=== PATIENT | female | born 1995 | race Caucasian/White ===

== ENCOUNTER 2023-03-15 18:43 | Emergency (ER) | payer MEDICAID, SELFPAY ==
[2023-03-15 18:51] VITALS: BP 115/68; PULSE 95; RESP 20; TEMP 37.2; O2SAT 100; BMI 34.2
--- NOTE | 2023-03-15 21:43 | ED_ITS ---
HPI - General Chief complaint: Abdominal Pain Stated complaint: 17.5 WEEKS , PRESSURE/CERVICAL PAIN Time Seen by Provider: 03/15/23 21:43 Source: patient Mode of arrival: walk-in Limitations: no limitations History of Present Illness HPI Narrative: [id number]. miscarriage 11/2022. 17 weeks . bleeding on and off for a couple of weeks. Seen by her milk of lime slaker last week and had ultrasound performed. Complains of pelvic pressure and came in to be checked . No urinary symptoms . No fever or chills. Related Data Home Medications Medication Instructions Recorded Confirmed No Known Home Medications 03/15/23 03/15/23 Allergies Allergy/AdvReac Type Severity Reaction Status Date / Time No Known Drug Allergies Allergy Verified 03/15/23 18:50 Review of Systems ROS Status of ROS 10 or more systems reviewed and unremarkable except as noted in history and below [facility] Social History Smoking status: Heavy tobacco smoker Exam Constitutional Vital Signs - 24 hr 03/15/23 18:51 Temperature 99 F Pulse Rate [Monitor] 95 H Respiratory Rate 20 Blood Pressure [Left Arm] 115/68 Pulse Oximetry 100 HENMT Common normals: normocephalic and head/scalp atraumatic Face and sinus: normal facial exam Eye Common normals: PERRL, EOMs intact bilaterally and conjunctivae normal Neck & C-Spine Common normals: full ROM and no lymphadenopathy Chest Common normals: inspection of chest normal Respiratory Common normals: normal respiratory effort, no use of accessory muscles and clear to auscultation bilaterally Cardio Common normals: regular rhythm, S1 normal heart sound and S2 normal heart sound GI Common normals: Normal to inspection, nondistended, normoactive bowel sounds present Other: mild suprapubic tenderness. Gravid Other: normal external exam. Speculum exam with evidence of protrusion of the aminotic sac through the os. No evidence of blood Back & Pelvis Common normals: no CVA tenderness and thoracic and lumbar spine normal to inspection Extremity Common normals: normal to inspection, no joint enlargement and no clubbing, cyanosis or edema Neuro Common normals: oriented x3, CN's II-XII intact bilaterally, moves all extremities and gait normal Psych Common normals: mental status grossly normal Course Vital Signs Vital signs: Vital Signs Temperature 99 F 03/15/23 18:51 Pulse Rate 95 H 03/15/23 18:51 Respiratory Rate 20 03/15/23 18:51 Blood Pressure 115/68 03/15/23 18:51 Pulse Oximetry 100 03/15/23 18:51 Temperature 99 F 03/15/23 18:51 Pulse Rate 95 H 03/15/23 18:51 Respiratory Rate 20 03/15/23 18:51 Blood Pressure 115/68 03/15/23 18:51 Pulse Oximetry 100 03/15/23 18:51 MDM - OB/Uterine Contractions MDM Narrative Medical decision making narrative: [id number]. miscarriage 11/2022. Now 17 weeks . Presents complaining of increased pelvic pressure. speculum exam with evidence of protrusion of the amniotic sac through the cervix into the vaginal vault. Discussed with Dr Gates patient seen by Dr Gates. She has incompetent cervix and will have a miscarriage. He informed her of the above and states no further treatment is necessary at this time. Patient discharged home to follow up with her milk of lime slaker Lab Data Labs: Lab Results 03/15/23 03/15/23 Range/Units 21:45 22:00 WBC 12.9 H (4.0-11.0) 10^3/uL RBC 3.95 L (4.20-5.40) 10^6/uL Hgb 11.7 L (12.0-16.0) g/dL Hct 34.9 L (36.0-48.0) % MCV 88.4 (81.0-99.0) fL MCH 29.6 (26.7-34.0) pg MCHC 33.5 (29.9-35.2) g/dL RDW 13.2 (11.0-15.0) % Plt Count 252 (150-450) 10^3/uL MPV 9.8 (9.5-13.5) fL Neut % (Auto) 69.7 (43.0-75.0) % Lymph % (Auto) 22.1 (20.5-60.0) % [place] % (Auto) 5.1 (1.7-12.0) % Eos % (Auto) 1.4 (0.9-7.0) % Baso % (Auto) 0.5 (0.2-2.0) % Neut # (Auto) 9.0 H (1.4-6.5) 10^3/uL Lymph # (Auto) 2.9 (1.2-3.8) 10^3/uL [place] # (Auto) 0.7 (0.3-0.8) 10^3/uL Eos # (Auto) 0.2 (0.0-0.7) 10^3/uL Baso # (Auto) 0.1 (0.0-0.1) 10^3/uL Sodium 136 (136-145) mmol/L Potassium 3.5 (3.5-5.1) mmol/L Chloride 103 (98-107) mmol/L Carbon Dioxide 21.9 (21.0-32.0) mmol/L Anion Gap 14.6 BUN 8.0 (7.0-18.0) mg/dL Creatinine 0.58 (0.55-1.02) mg/dL Est GFR ( Amer) >60 (>=60) Est GFR (Non-Af Amer) >60 (>=60) BUN/Creatinine Ratio 13.8 Glucose 79 (74-106) mg/dL Calcium 9.2 (8.5-10.1) mg/dL Total Bilirubin 0.2 (0.2-1.0) mg/dL AST 16 (15-37) U/L ALT 32 (14-59) U/L Total Protein 7.2 (6.4-8.2) g/dL Albumin 3.4 (3.4-5.0) g/dL Globulin 3.8 g/dL Albumin/Globulin Ratio 0.9 HCG, Quant 6839 mIU/mL Urine Color Lt. yellow (YELLOW) Urine Clarity Clear (CLEAR) Urine pH 5.5 (5.0-9.0) Ur Specific [place] 1.025 (1.005-1.025) Urine Protein Negative (NEG/TRACE) mg/dL Urine Glucose (UA) Negative (NEGATIVE) mg/dL Urine Ketones Negative (NEGATIVE) mg/dL Urine Occult Blood Trace-i (NEGATIVE) Urine Nitrite Negative (NEGATIVE) Urine Bilirubin Negative (NEGATIVE) Urine Urobilinogen 0.2 (0.2-1.0) EU/dL Ur Leukocyte Esterase Negative (NEGATIVE) Urine RBC 0-2 (0-2) #/HPF Urine WBC 2-5 A (NONE SEEN) #/HPF Ur Squamous Epith Cells Few A (NONE/RARE) #/LPF Urine Yeast Seen A (NONE SEEN) Ur Oval Fat Bodies Seen Discharge Plan Discharge Chief Complaint: Abdominal Pain Clinical Impression: History of incompetent cervix, currently in second trimester Patient Disposition: Home, Self-Care Prescriptions / Home Meds: No Action No Known Home Medications Instructions: Incompetent Cervix (ED) Stand Alone Forms: Portal Instructions Referrals: GIANLUCA BRISCOE [Primary Care Provider] - 1 week Follow Up Appointments: follow up with your milk of lime slaker
[2023-03-15 22:08] LABS: Basophils Absolute Auto 0.1 10^3/uL (0.0-0.1); Basophils Percent Auto 0.5 % (0.2-2.0); Eosinophils Absolute Auto 0.2 10^3/uL (0.0-0.7); Eosinophils Percent Auto 1.4 % (0.9-7.0); Hematocrit 34.9 % (36.0-48.0); Hemoglobin 11.7 g/dL (12.0-16.0); Immature Granulocytes Abs Auto 0.15 10^3/uL (0.00-0.03); Immature Granulocytes Pct Auto 1.2 % (0.0-0.5); Lymphocytes Absolute Auto 2.9 10^3/uL (1.2-3.8); Lymphocytes Percent Auto 22.1 % (20.5-60.0); Mean Corpuscular HGB Conc 33.5 g/dL (29.9-35.2); Mean Corpuscular Hemoglobin 29.6 pg (26.7-34.0); Mean Corpuscular Volume 88.4 fL (81.0-99.0); Mean Platelet Volume 9.8 fL (9.5-13.5); Monocytes Absolute Auto 0.7 10^3/uL (0.3-0.8); Monocytes Percent Auto 5.1 % (1.7-12.0); Neutrophils Percent Auto 69.7 % (43.0-75.0); Platelet Count 252 10^3/uL (150-450); Red Blood Count 3.95 10^6/uL (4.20-5.40); Red Cell Distribution Width 13.2 % (11.0-15.0); White Blood Count 12.9 10^3/uL (4.0-11.0)
[2023-03-15 22:09] LABS: HCG Qualitative Urine* POSITIVE (NEGATIVE)
[2023-03-15 22:10] LABS: Bilirubin Urine NEGATIVE (NEGATIVE); Blood Urine TRACE-I (NEGATIVE); Clarity Urine CLEAR (CLEAR); Color Urine LT. YELLOW (YELLOW); Glucose Urine UA NEGATIVE (NEGATIVE); Ketones Urine NEGATIVE (NEGATIVE); Leukocyte Esterase Urine NEGATIVE (NEGATIVE); Nitrite Urine NEGATIVE (NEGATIVE); Protein Urine NEGATIVE (NEG/TRACE); Specific Gravity Urine 1.025 (1.005-1.025); Urobilinogen Urine 0.2 EU/dL (0.2-1.0); pH Urine 5.5 (5.0-9.0)
[2023-03-15 22:18] LABS: Bacteria Urine NONE SEEN #/HPF (NONE SEEN); Cast Seen? NONE SEEN #/LPF (NONE SEEN); Crystals Seen? None Seen #/HPF (None Seen); Mucus Urine NONE SEEN (NONE SEEN); Oval Fat Bodies Urine SEEN; RBC Urine 0-2 #/HPF (0-2); Squamous Epithelial Cell Urine FEW #/LPF (NONE/RARE)
[2023-03-15 22:25] LABS: Alanine Aminotransferase 32 U/L (14-59); Albumin Globulin Ratio 0.9; Albumin Level 3.4 g/dL (3.4-5.0); Alkaline Phosphatase 59 U/L (46-116); Anion Gap 14.6; Aspartate Amino Transferase 16 U/L (15-37); BUN Creatinine Ratio 13.8; Bilirubin Total 0.2 mg/dL (0.2-1.0); Calcium 9.2 mg/dL (8.5-10.1); Carbon Dioxide 21.9 mmol/L (21.0-32.0); Chloride 103 mmol/L (98-107); Estimated GFR (African America >60 (>=60); Estimated GFR (Non-African Ame >60 (>=60); Globulin 3.8 g/dL; Glucose 79 mg/dL (74-106); Potassium 3.5 mmol/L (3.5-5.1); Sodium 136 mmol/L (136-145); Total Protein 7.2 g/dL (6.4-8.2)
--- NOTE | 2023-03-15 22:57 | PC.NURSE ---
dr rendon at the bedside for pelvic exam
[2023-03-15 23:22] LABS: HCG Quantitative 6839 mIU/mL
--- NOTE | 2023-03-15 23:30 | PC.NURSE ---
dr ortega at the bedside for pelvic exam.
--- NOTE | 2023-03-15 23:54 | PC.NURSE ---
discussed discharge paperwork with pt and pts significant other. work noted provided. all questions answered. pt ambulated off unit in stable condition.
== END 2023-03-15 23:55 | disposition home or self-care (01) ==
PROVIDERS: Emergency Provider Internal Medicine; PCP Nurse Practitioner
DX: O26.892 Other specified pregnancy related conditions, second trimester (principal); R10.2 Pelvic and perineal pain; Z3A.17 17 weeks gestation of pregnancy
CPT/HCPCS: 36415; 80053; 81001; 84702; 84703; 85025; 99283

== ENCOUNTER 2023-03-18 22:11 | Emergency (ER) | payer MEDICAID, SELFPAY ==
[2023-03-18 22:14] VITALS: BP 134/81; PULSE 115; RESP 18; TEMP 36.8; O2SAT 100; BMI 34.0
--- NOTE | 2023-03-18 22:38 | PC.NURSE ---
patient seen friday and with incompetent cervix. seen by Dr. Gates and told there was nothing he could do. patient went to [facility] and given cercalage. patient having increased discharge and pain. Nurse at bedside for Dr. newell to preform external vaginal exam.
--- NOTE | 2023-03-18 22:39 | ED_ITS ---
HPI - General Adult General Chief complaint: Urogenital-Female Stated complaint: POST OP ISSUES Time Seen by Provider: 03/18/23 22:32 Source: patient Mode of arrival: Wheelchair History of Present Illness HPI narrative: Patient is a 27-year-old female who is presenting to the Emergency Room with chief complaint of pelvic pressure/pain. Patient is approximate 17 weeks . Patient's heart tones were 138. Patient has minimal clear discharge, patient has no bleeding, no significant leaking of any type of fluid or draining fluid. Patient is a . Patient had a miscarriage with her 1st . Patient was here [facility] this past weekend, then she went to [facility] where she had a cervical cerclage done on Friday. Patient is following up with the local postmaster in a few weeks. Patient does have an appo intment with the OB in [place] who did the cerclage this in 2 days. Patient has no fever or chills. No trauma. No other abdominal pain, nausea, vomiting, no urinary frequency, urgency or burning or any other acute complaints. Patient has been on pelvic rest. Patient did not take any Tylenol for pain at home, patient states she was not sure what she takes at home for pain. Related Data Home Medications Medication Instructions Recorded Confirmed No Known Home Medications 03/15/23 03/15/23 Allergies Allergy/AdvReac Type Severity Reaction Status Date / Time No Known Drug Allergies Allergy Verified 03/18/23 22:25 Review of Systems ROS Narrative All systems are negative except as noted/marked. All systems reviewed and otherwise negative. PFSH [facility] Social History Smoking status: Heavy tobacco smoker Exam Narrative Exam Narrative: Nurses note and vital signs reviewed and patient is not hypoxic. General: The patient appears well and in no apparent distress. Patient is resting uncomfortably on cart. Patient is not toxic, lethargic, or listless. at bedside during exam. Skin: Warm, dry, no pallor noted. There is no rash noted. No petechiae, purpura. Head: Normocephalic, atraumatic Eye: Normal conjunctiva, no drainage, EOMI. PERRL Ears, Nose, Mouth, and Throat: oral mucosa is moist. Cardiovascular: Regular Rate and Rhythm, no murmur, gallop, rub Respiratory: Patient is in no distress, no accessory muscle use, lungs are clear to auscultation, no wheezing, rales or rhonchi Back: non-tender, no CVA tenderness bilaterally to percussion. No CT LS midline pain GI: soft, Patient has a gravid uterus, approximately 17 weeks , patient has minimal suprapubic tenderness to palpation, otherwise no flank pain, no peritoneal signs, abdomen is not rigid or tympanic, otherwise no tenderness to palpation, no masses appreciated. No rebound, guarding, or rigidity noted. No flank pain bilateral, No distention : External exam was done with Jalen CANNON. Patient had no active bleeding, no drainage of any type of fluid or water or any vaginal drainage noted. No signs of redness, swelling, trauma, or any other acute findings. Musculoskeletal: Patient has full range of motion of all of the extremities, no motor, sensory, or focal neurological deficits. Neurological: A&O x3, normal speech Psychiatric: Cooperative Constitutional Vital Signs - 24 hr 03/18/23 22:14 Temperature 98.3 F Pulse Rate [Monitor] 115 H Respiratory Rate 18 Blood Pressure [Right Arm] 134/81 H Pulse Oximetry 100 Oxygen Delivery Method Room Air Course Vital Signs Vital signs: Vital Signs Temperature 98.3 F 03/18/23 22:14 Pulse Rate 115 H 03/18/23 22:14 Respiratory Rate 18 03/18/23 22:14 Blood Pressure 134/81 H 03/18/23 22:14 Pulse Oximetry 100 03/18/23 22:14 Oxygen Delivery Method Room Air 03/18/23 22:14 Temperature 98.3 F 03/18/23 22:14 Pulse Rate 115 H 03/18/23 22:14 Respiratory Rate 18 03/18/23 22:14 Blood Pressure 134/81 H 03/18/23 22:14 Pulse Oximetry 100 03/18/23 22:14 Oxygen Delivery Method Room Air 03/18/23 22:14 Medical Decision Making MDM Narrative Medical decision making narrative: I spoke to Dr. Le who is on-call for [facility]. He stated the patient is going to have pressure throughout her . He recommended continuing pelvic rest. He stated to not do a pelvic exam was absolutely necessary secondary to leakage of fluid, bleeding, or any other acute concerns. Patient is to follow-up with her OB appointment on , patient was recommended to return back to the Emergency Room If she is having atypical leading, significant drainage of water, fluid or leakage, or any other acute concerns. Patient was given Tylenol in the Emergency Room. Patient was given a prescription for Zofran to help with nausea vomiting during . Patient has no acute indication for pelvic exam at this time. Patient was educated at bedside along with . Patient will continue pelvic rest. Patient is not working until after she sees her OB this . Discharge Plan Discharge Chief Complaint: Urogenital-Female Clinical Impression: Pelvic pressure in Patient Disposition: Home, Self-Care Prescriptions / Home Meds: No Action No Known Home Medications Instructions: Cervical Cerclage (DC) Additional Instructions: Follow-up with here [facility] as scheduled appointment on . Continue pelvic rest until your OB appointment on . You can use Tylenol every 4 hours as needed for pain. If any significant bleeding, or any significant draining or leakage of fluid/water if your water has broken, return back to the Emergency Room. Otherwise continue to follow up with her OB care in [place]. Stand Alone Forms: Portal Instructions Referrals: GIANLUCA BRISCOE [Primary Care Provider] - 1 week
[2023-03-18] MEDS: ACETAMINOPHEN 500 MG TABLET PO (23:05)
--- NOTE | 2023-03-18 23:24 | PC.NURSE ---
heart tones 138.
== END 2023-03-18 23:28 | disposition home or self-care (01) ==
PROVIDERS: Emergency Provider Emergency Medicine; PCP Nurse Practitioner
DX: O26.892 Other specified pregnancy related conditions, second trimester (principal); R10.2 Pelvic and perineal pain; Z3A.17 17 weeks gestation of pregnancy
CPT/HCPCS: 99282

== ENCOUNTER 2023-03-19 04:03 | Inpatient (IN) | payer MEDICAID, SELFPAY ==
[2023-03-19] VITALS (33 sets, daily range): BP systolic 90–139; BP diastolic 46–85; PULSE 77–108; RESP 14–20; TEMP 36.6–37.8; O2SAT 16–100
--- NOTE | 2023-03-19 04:15 | ED.GENADUL1 ---
HPI - General Adult General Chief complaint: OB/Uterine Contractions Stated complaint: POSSIBLE WATER BREAK, ABDOMINAL PAIN, Time Seen by Provider: 03/19/23 04:15 History of Present Illness HPI narrative: Patient is a 27-year-old female who is presenting to the Emergency Room with chief complaint of pelvic pain, pressure, lower back pain That started within the hour of arrival. Patient stated that she had gushing of fluid that soaked a pad prior to arrival, and when patient was getting up from the wheelchair into the bed in room 8 patient, Patient had a 2nd fluid discharge, greenish coloration, that soaked her pad again in her underwear. Patient is having pelvic cramping and lower back pain as well. Patient has no bleeding. No nausea, vomiting. Patient did not take Tylenol or anything else for pain prior to arrival. Patient is a , 1st was a miscarriage. heart tones were done during HPI 156. Related Data Home Medications Medication Instructions Recorded Confirmed No Known Home Medications 03/15/23 03/15/23 Allergies Allergy/AdvReac Type Severity Reaction Status Date / Time No Known Drug Allergies Allergy Verified 03/18/23 22:25 Review of Systems ROS Narrative All systems are negative except as noted/marked. All systems reviewed and otherwise negative. PFSH PFS Social History Smoking status: Heavy tobacco smoker Exam Narrative Exam Narrative: Nurses note and vital signs reviewed and patient is not hypoxic. General: The patient appears well and in Moderate respiratory distress secondary to pain, and concern for , is at bedside. Patient is resting uncomfortably on cart. Patient is not toxic, lethargic, or listless Skin: Warm, dry, no pallor noted. There is no rash noted. No petechiae, purpura. Head: Normocephalic, atraumatic Eye: Normal conjunctiva, no drainage, EOMI. PERRL Ears, Nose, Mouth, and Throat: oral mucosa is moist. Cardiovascular: Regular Rate and Rhythm, no murmur, gallop, rub Respiratory: Patient is in no distress, no accessory muscle use, lungs are clear to auscultation, no wheezing, rales or rhonchi GI: soft, no tenderness to palpation, no masses appreciated. No rebound, guarding, or rigidity noted. No flank pain bilateral, No distention : Roma RN Is at bedside during exam. Patient had underwear taken off, patient did have a pad inside her underwear that was moderately heavy/soaked with fluid. External exam showed clear/minimal greenish fluid noted to the external vaginal area, no bleeding. No internal exam was done at this time. Mild suprapubic tenderness to palpation. heart tones were 156. Musculoskeletal: Patient has full range of motion of all of the extremities, no motor, sensory, or focal neurological deficits Neurological: A&O x3, normal speech Psychiatric: Cooperative Medical Decision Making [facility] Narrative Medical decision making narrative: I spoke to Dr Le at approximately 0425. He recommended taking patient to the OB for for further monitoring. IV was established, he recommended giving 25 mg of Demerol which we do not have in our ER pyxis, she do not have any meds in ER department. IV was established, labs are drawn. He has spoken to Jose Manuel the aircraft maintenance supervisor and patient will be taken to the OB nurse and medicated in OB because Demerol is in the OB Department or MedSurg floor, we do not have that in the Emergency Room. This is recommended by Dr. Le. 0435 Patient was introduced to Jose Manuel the aircraft maintenance supervisor, and easily patient up to the OB floor in a bed with . Patient will be medicated on the OB floor and IV fluids will be started. Dr. Le called to the OB floor to give instructions and orders to the OB nurses. heart tones her captured at 156. Blood pressure is 139/81, heart rate was 108. Discharge Plan Discharge Chief Complaint: OB/Uterine Contractions Clinical Impression: History of incompetent cervix, currently in second trimester, Vaginal abnormality in , Pelvic pressure in Patient Disposition: Admitted as Observation Time of Disposition Decision: 04:42 Condition: Serious Prescriptions / Home Meds: No Action No Known Home Medications
[2023-03-19 04:46] LABS: Hematocrit 32.7 % (36.0-48.0); Hemoglobin 11.3 g/dL (12.0-16.0); Mean Corpuscular HGB Conc 34.6 g/dL (29.9-35.2); Mean Corpuscular Hemoglobin 29.8 pg (26.7-34.0); Mean Corpuscular Volume 86.3 fL (81.0-99.0); Mean Platelet Volume 9.8 fL (9.5-13.5); Platelet Count 236 10^3/uL (150-450); Red Blood Count 3.79 10^6/uL (4.20-5.40); Red Cell Distribution Width 13.2 % (11.0-15.0)
[2023-03-19 05:14] LABS: Alanine Aminotransferase 34 U/L (14-59); Albumin Globulin Ratio 0.8; Albumin Level 3.3 g/dL (3.4-5.0); Alkaline Phosphatase 69 U/L (46-116); Anion Gap 14.9; Aspartate Amino Transferase 18 U/L (15-37); BUN Creatinine Ratio 7.4; Bilirubin Total 0.3 mg/dL (0.2-1.0); Calcium 9.2 mg/dL (8.5-10.1); Carbon Dioxide 21.2 mmol/L (21.0-32.0); Chloride 103 mmol/L (98-107); Estimated GFR (African America >60 (>=60); Estimated GFR (Non-African Ame >60 (>=60); Glucose 87 mg/dL (74-106); Potassium 3.1 mmol/L (3.5-5.1); Sodium 136 mmol/L (136-145); Total Protein 7.3 g/dL (6.4-8.2)
[2023-03-19] MEDS: MEPERIDINE HCL/PF 25 MG/ML VIAL IVP ×2 (06:14→12:10)
[2023-03-19] MEDS: PROMETHAZINE HCL 25 MG in 0.9 % SODIUM CHLORIDE 50 ML 204 MG IV ×2 (06:28→11:52)
[2023-03-19] MEDS: 0.9 % SODIUM CHLORIDE 1,000 ML 125 ML IV ×2 (06:29→13:21)
--- NOTE | 2023-03-19 08:28 | W.PC.ACHO ---
Registration Status: ADM IN Primary Language: Preferred Language: Active Medications Generic Name Dose Route Start Last Admin Trade Name Nicolás PRN Reason Stop Dose Admin Carboprost Tromethamine 250 mcg 03/19/23 08:02 Carboprost Tromethamine 250 Mcg/Ml 1 Ml Vial IM Q15M PRN Bleeding Sodium Chloride 1,000 mls @ 125 mls/hr 03/19/23 05:30 03/19/23 06:29 Sodium Chloride 0.9% 1,000 Ml IV 125 mls/hr .Q8H TYLOR Administration Oxytocin 10 unit/ Sodium 501 mls @ 6.012 mls/hr 03/19/23 08:15 Chloride IV Q24H TYLOR 2 MILLIUNIT/MIN Oxytocin 20 unit/ Sodium 1,002 mls @ 125 mls/hr 03/19/23 08:15 Chloride IV 03/19/23 16:14 Q8H PRN Bleeding Protocol Lidocaine 5 ml 03/19/23 08:02 Lidocaine Viscous 2% 15 Ml Topical Solution TOPICAL ONCE PRN Pain Lidocaine 1 ml 03/19/23 08:02 Lidocaine Hcl 1% 200 Mg/20 Ml Mdv INJ ONCE PRN Pain Methylergonovine Maleate 0.2 mg 03/19/23 08:02 Methylergonovine Maleate 0.2 Mg/Ml Ampule IM ONCE PRN Uterine Contractility/Contract Methylergonovine Maleate 0.2 mg 03/19/23 08:02 Methylergonovine Maleate 0.2 Mg Tablet PO Q4H PRN Uterine Contractility/Contract Misoprostol 600 mcg 03/19/23 08:02 Misoprostol 100 Mcg Tablet PO ONCE PRN Uterine Bleeding Misoprostol 800 mcg 03/19/23 08:02 Misoprostol 100 Mcg Tablet SL ONCE PRN Uterine Bleeding Misoprostol 1,000 mcg 03/19/23 08:02 Misoprostol 100 Mcg Tablet MI ONCE PRN Uterine Bleeding Oxytocin 10 unit 03/19/23 08:02 Oxytocin 100 Unit/10 Ml Vial IM ONCE PRN Uterine Bleeding IV Insertion/Site Date of IV Line Insertion [18g 03/19/23 right Antecubital] Date of IV Line Insertion [ 03/19/23 Single Lumen Right Antecubital ] IV Insertion Time [Single 04:25 Lumen Right Antecubital] IV Catheter Type [Single Lumen Saline Lock Right Antecubital] Neurology Patient orientation (short person,place,time,situation list) Respiratory Pulse Oximetry 100 Oxygen Delivery Method Room Air
--- NOTE | 2023-03-19 08:49 | PC.NURSE ---
0614 Demerol given for pain 05/22
--- NOTE | 2023-03-19 12:29 | US_ITS ---
[address] [address] Patient Name: GIRMA ESQUIVEL MRN: [id number] date: 1995 Sex: F Assigned Patient Location: [facility] Current Patient Location: [facility] Accession/Order Number: [id number] Exam Date: 03/19/2023 12:15 Report Date: 03/19/2023 13:01 At the request of: MERLY GILLILAND Procedure: US OB limited EXAMINATION: US OB limited HISTORY: viability COMPARISON: Ultrasound Limited 03/01/2023 FINDINGS: Presentation: Breech Fluid volume: Subjectively low Heart rate: No detectable heartbeat. GA: 18 weeks 0 days IMPRESSION: 1. Intrauterine with no detectable heartbeat, and low fluid volume. Electronically authenticated by: RANULFO CARROLL Date: 03/19/2023 13:01
--- NOTE | 2023-03-19 12:41 | PM.OBHP ---
OB - H&P: HPI History of Present Illness Chief complaint: POSSIBLE WATER BREAKAGE : 2 Para: 0 Gestational age based on last menstrual period: GA by US at 7w5d 18w2d Narrative: Patient presented to the emergency department today with complaints of leaking fluid vaginally. She previously had a cerclage placed at [facility] on 03/15/23 Secondary to incompetent cervix. History of Present Dating criteria: based on 1st trimester US only care: good care Ultrasounds: normal 1st trimester US and normal mid trimester US complications comment: Early in patient had diagnostic laparoscopy for suspected ectopic Medical complications OB: none Review of Systems ROS Status of ROS 10 or more systems reviewed and unremarkable except as noted in history and below PFSH PFS Medical History Social History Smoking status: Former smoker Meds Home Medications and Allergies Home Medications Medication Instructions Recorded Confirmed Type No Known Home Medications 03/15/23 03/15/23 History Allergies Allergy/AdvReac Type Severity Reaction Status Date / Time latex Allergy Unknown Verified 03/19/23 07:09 Exam Constitutional Vital Signs - 24 hr 03/19/23 04:10 03/19/23 04:59 03/19/23 11:39 Temperature 98.2 F Pulse Rate 100 H 96 H Pulse Rate [Monitor] 108 H Respiratory Rate 20 Blood Pressure 123/64 H 111/61 Blood Pressure [Right Arm] 139/81 H Pulse Oximetry 100 Oxygen Delivery Method Room Air 03/19/23 11:40 Temperature 99.8 F H Pulse Rate Pulse Rate [Monitor] Respiratory Rate Blood Pressure Blood Pressure [Right Arm] Pulse Oximetry Oxygen Delivery Method Common normals: no apparent distress Other: Respiratory normal, lungs clear to auscultation. Heart regular rate and rhythm. Abdomen soft, nontender, mild tenderness in the pelvic area. Speculum exam shows cervical tape cerclage is almost out of the cervix, malodorous yellow discharge is noted. I removed the remaining elements of the cerclage. Cervix is 1 cm, fifty percent. Ultrasound showed no heart activity. Results Labs Labs: Short CBC 03/19/23 Range/Units 04:34 WBC 18.0 H (4.0-11.0) 10^3/uL Hgb 11.3 L (12.0-16.0) g/dL Hct 32.7 L (36.0-48.0) % Plt Count 236 (150-450) 10^3/uL BMP 03/19/23 04:34 Sodium 136 Potassium 3.1 L Chloride 103 Carbon Dioxide 21.2 BUN 4.0 L Creatinine 0.54 L Glucose 87 Calcium 9.2 Liver Function 03/19/23 Range/Units 04:34 Total Bilirubin 0.3 (0.2-1.0) mg/dL AST 18 (15-37) U/L ALT 34 (14-59) U/L Alkaline Phosphatase 69 (46-116) U/L Albumin 3.3 L (3.4-5.0) g/dL OB - A/P Assessment and Plan (1) Chorioamnionitis: (2) Premature rupture of membranes in second trimester: (3) demise before 20 weeks with retention of fetus: Plan IV antibiotics were initiated, Cytotec protocol was initiated 400 mg every three hours intravaginally. Pain control as needed.
--- NOTE | 2023-03-19 12:53 | PC.NURSE ---
1250 - Pt spouse gives staff permission to update pts mother on pt status.
--- NOTE | 2023-03-19 12:55 | PC.NURSE ---
1220 - Dr. Gates at bedside. Bed broken down for cerclage removal. 1223 - Dr. Gates removes cerclage. Orders recieved.
[2023-03-19] MEDS: CEFAZOLIN SODIUM/DEXTROSE,ISO 2 GM/50 ML PIGGYBACK IV ×2 (13:15→19:21)
[2023-03-19] MEDS: MISOPROSTOL 100 MCG TABLET 400 MCG VAGINAL (13:15)
[2023-03-19] MEDS: METRONIDAZOLE/SODIUM CHLORIDE 500 MG/100 ML PREMIX 100 MG IV (13:51)
[2023-03-19] MEDS: KETOROLAC TROMETHAMINE 30 MG/ML VIAL IVP (13:57)
--- NOTE | 2023-03-19 15:45 | US_ITS ---
[address] [address] Patient Name: GIRMA ESQUIVEL MRN: [id number] date: 1995 Sex: F Assigned Patient Location: [facility] Current Patient Location: [facility] Accession/Order Number: [id number] Exam Date: 03/19/2023 15:45 Report Date: 03/20/2023 06:25 At the request of: MERLY GILLILAND Procedure: US pelvis EXAMINATION: US pelvis HISTORY: D C in surgery COMPARISON: Ultrasound OB Limited 03/19/2023 12:32 PM TECHNIQUE: Transabdominal and/or transvaginal sonographic examination was performed as indicated by examination type. FINDINGS: UTERUS: Intraprocedural ultrasound evaluation of uterus with echogenic material remaining within the endometrial cavity on the final image. Uterus size: IMPRESSION: 1. Dilation curettage for demise. 2. The last ultrasound image (which may not be the end of the procedure) shows echogenic material within the endometrial cavity consistent with retained products of conception. Follow-up recommended. Electronically authenticated by: RANULFO CARROLL Date: 03/20/2023 06:25
--- NOTE | 2023-03-19 16:15 | P.ON_ITS ---
Brief Operative Note Date of procedure: 03/19/23 Pre-op diagnosis: Rupture of membranes at eighteen weeks five days, melissa se. Post-op diagnosis: other (Same, chorioamnionitis.) Procedure: Removal of retained placenta. Uterine curettage under ultrasound control. Patient was placed on the OR table in dorsal lithotomy position, prepped and draped in sterile fashion. Placenta was observed, trapped in the cervical canal, removed using sponge forceps. Under ultrasound control, the remaining products of conception and placental pieces were removed from the uterus using sharp curettage and suction curettage. Hemostasis was excellent. Patient tolerated procedure well. She was awakened and taken to the recovery room in stable condition. Anesthesia: GETA Estimated blood loss (mL): 100 Pathology: other (Placenta and uterine curettings.) Condition: stable Disposition: PACU
--- NOTE | 2023-03-19 16:38 | PC.NURSE ---
Cecy pad has scant amount of drainage and has had no change since arrival to the PACU bay
--- NOTE | 2023-03-19 16:49 | PC.NURSE ---
Cecy pad continued without change throughout PACU stay. Scant amount continues.
[2023-03-20] VITALS (8 sets, daily range): BP systolic 93–117; BP diastolic 54–65; PULSE 73–88; RESP 16; TEMP 35.6–36.9
[2023-03-20] MEDS: KETOROLAC TROMETHAMINE 30 MG/ML VIAL IVP (00:50)
[2023-03-20] MEDS: CEFAZOLIN SODIUM/DEXTROSE,ISO 2 GM/50 ML PIGGYBACK IV ×4 (01:00→20:13)
[2023-03-20] MEDS: METRONIDAZOLE/SODIUM CHLORIDE 500 MG/100 ML PREMIX 100 MG IV ×2 (01:50→13:37)
[2023-03-20] MEDS: 0.9 % SODIUM CHLORIDE 1,000 ML 125 ML IV ×2 (03:11→13:36)
[2023-03-20 05:25] LABS: Basophils Percent Auto 0.2 % (0.2-2.0); Eosinophils Absolute Auto 0.1 10^3/uL (0.0-0.7); Eosinophils Percent Auto 0.2 % (0.9-7.0); Hematocrit 28.1 % (36.0-48.0); Hemoglobin 9.4 g/dL (12.0-16.0); Immature Granulocytes Abs Auto 0.21 10^3/uL (0.00-0.03); Lymphocytes Absolute Auto 2.4 10^3/uL (1.2-3.8); Lymphocytes Percent Auto 11.5 % (20.5-60.0); Mean Corpuscular HGB Conc 33.5 g/dL (29.9-35.2); Mean Corpuscular Hemoglobin 30.3 pg (26.7-34.0); Mean Corpuscular Volume 90.6 fL (81.0-99.0); Mean Platelet Volume 10.1 fL (9.5-13.5); Monocytes Absolute Auto 1.1 10^3/uL (0.3-0.8); Monocytes Percent Auto 5.4 % (1.7-12.0); Neutrophils Percent Auto 81.7 % (43.0-75.0); Platelet Count 200 10^3/uL (150-450); Red Cell Distribution Width 13.2 % (11.0-15.0); White Blood Count 20.8 10^3/uL (4.0-11.0)
--- NOTE | 2023-03-20 07:25 | W.PC.ACHO ---
Registration Status: ADM IN Primary Language: Preferred Language: Syriac Active Medications Generic Name Dose Route Start Last Admin Trade Name Nicolás PRN Reason Stop Dose Admin Carboprost Tromethamine 250 mcg 03/19/23 08:02 Carboprost Tromethamine 250 Mcg/Ml 1 Ml Vial IM Q15M PRN Bleeding Hydromorphone HCl 0.5 mg 03/19/23 16:32 Hydromorphone Hcl 0.5 Mg/0.5 Ml Syringe IV Q5M PRN Pain Sodium Chloride 1,000 mls @ 125 mls/hr 03/19/23 05:30 03/20/23 03:11 Sodium Chloride 0.9% 1,000 Ml IV 125 mls/hr .Q8H TYLOR Administration Oxytocin 10 unit/ Sodium 501 mls @ 6.012 mls/hr 03/19/23 08:15 Chloride IV Q24H TYLOR 2 MILLIUNIT/MIN Promethazine HCl 25 mg/ Sodium 51 mls @ 204 mls/hr 03/19/23 10:53 03/19/23 11:52 Chloride IV 204 mls/hr Q3H PRN 204 mls/hr Pain Administration Metronidazole 500 mg in 100 mls @ 100 mls/hr 03/19/23 13:00 03/20/23 01:50 Flagyl 500 Mg/100 Ml Premix IV 100 mls/hr Q12H TYLOR 100 mls/hr Administration Cefazolin Sodium/Dextrose 2 gm in 50 mls @ 100 mls/hr 03/19/23 13:15 03/20/23 01:00 Ancef IV 100 mls/hr Q6H TYLOR 100 mls/hr Administration Ketorolac Tromethamine 30 mg 03/19/23 12:50 03/20/23 00:50 Ketorolac Tromethamine 30 Mg/Ml Vial IVP 30 mg Q6H PRN Administration Pain Lidocaine 5 ml 03/19/23 08:02 Lidocaine Viscous 2% 15 Ml Topical Solution TOPICAL ONCE PRN Pain Lidocaine 1 ml 03/19/23 08:02 Lidocaine Hcl 1% 200 Mg/20 Ml Mdv INJ ONCE PRN Pain Meperidine HCl 25 mg 03/19/23 10:53 03/19/23 12:10 Meperidine Hcl/Pf 25 Mg/Ml Vial IVP 25 mg Q3H PRN Administration Pain Meperidine HCl 25 mg 03/19/23 16:32 Meperidine Hcl/Pf 25 Mg/Ml Vial IVP ONCE PRN Pain Methylergonovine Maleate 0.2 mg 03/19/23 08:02 Methylergonovine Maleate 0.2 Mg/Ml Ampule IM ONCE PRN Uterine Contractility/Contract Methylergonovine Maleate 0.2 mg 03/19/23 08:02 Methylergonovine Maleate 0.2 Mg Tablet PO Q4H PRN Uterine Contractility/Contract Misoprostol 600 mcg 03/19/23 08:02 Misoprostol 100 Mcg Tablet PO ONCE PRN Uterine Bleeding Misoprostol 800 mcg 03/19/23 08:02 Misoprostol 100 Mcg Tablet SL ONCE PRN Uterine Bleeding Misoprostol 1,000 mcg 03/19/23 08:02 Misoprostol 100 Mcg Tablet DC ONCE PRN Uterine Bleeding Misoprostol 400 mcg 03/19/23 13:00 03/19/23 13:15 Misoprostol 100 Mcg Tablet VAGINAL 400 mcg Q3H TYLOR Administration Morphine Sulfate 2 mg 03/19/23 16:32 Morphine Sulfate 4 Mg/Ml Vial IV ONCE PRN Pain Oxytocin 10 unit 03/19/23 08:02 Oxytocin 100 Unit/10 Ml Vial IM ONCE PRN Uterine Bleeding Diet Category Date Time Status Regular Consistency Diet Diet 03/19/23 Dinner Active Neurology [place] coma scale total score 15 Respiratory Lung sounds [Throughout] clear Pulse Oximetry 94 Pulse Oximetry 16 Pulse Oximetry 93 Pulse Oximetry 93 Pulse Oximetry 93 Pulse Oximetry 93 Pulse Oximetry 93 Pulse Oximetry 92 Pulse Oximetry 92 Pulse Oximetry 92 Pulse Oximetry 94 Oxygen Delivery Method Room Air Oxygen Delivery Method Room Air Oxygen Delivery Method Room Air Cardiology Heart Sounds Regular
--- NOTE | 2023-03-20 11:42 | SWNOTE1 ---
SW met with pt and her . Baby . SW did give pt and and resources for grief counseling. SW offered assistance with home, at this time pt's is not ready. SW did ask them if they have good support at home and pt shook her head yes and he stated yes. At this time pt visibly upset,crying. SW to follow up with pt and tomorrow.
--- NOTE | 2023-03-20 12:19 | PM.OBPN ---
OB - PN: Subj Subjective Interval history: Patient isn't depressed mood, grieving the loss. Objective assessment is normal. Patient comments: pain well controlled status: stillbirth Exam Narrative Exam Narrative: Gen. exam was normal. Lungs are clear to auscultation. Heart regular rate and rhythm. Abdomen is soft, nontender. Small amount of vaginal bleeding. Neurologically intact. Constitutional Vital Signs - 24 hr 03/19/23 14:05 03/19/23 14:31 03/19/23 14:46 Temperature Pulse Rate 104 H 97 H 102 H Respiratory Rate Blood Pressure 131/85 H 114/58 L 104/57 L Pulse Oximetry Oxygen Delivery Method 03/19/23 15:01 03/19/23 15:16 03/19/23 15:31 Temperature Pulse Rate 103 H 105 H 94 H Respiratory Rate Blood Pressure 103/57 L 108/59 L 102/57 L Pulse Oximetry Oxygen Delivery Method 03/19/23 17:06 03/19/23 17:21 03/19/23 17:36 Temperature Pulse Rate 77 96 H 89 Respiratory Rate Blood Pressure 98/53 L 125/77 H 119/57 L Pulse Oximetry Oxygen Delivery Method 03/19/23 17:51 03/19/23 18:06 03/19/23 18:21 Temperature Pulse Rate 83 85 92 H Respiratory Rate Blood Pressure 99/54 L 99/58 L 108/59 L Pulse Oximetry Oxygen Delivery Method 03/19/23 18:36 03/19/23 18:51 03/19/23 19:03 Temperature Pulse Rate 93 H 100 H 97 H Respiratory Rate Blood Pressure 117/56 L 115/58 L 108/58 L Pulse Oximetry Oxygen Delivery Method 03/20/23 01:05 03/20/23 08:00 03/19/23 14:30 Temperature 96.1 F L 100.1 F H Pulse Rate 74 73 Respiratory Rate Blood Pressure 93/54 L 101/57 L Pulse Oximetry Oxygen Delivery Method 03/19/23 16:17 03/19/23 16:32 03/19/23 16:43 Temperature 97.9 F Pulse Rate 94 H Respiratory Rate 14 Blood Pressure 96/46 L Pulse Oximetry 94 L 16 L Oxygen Delivery Method Room Air Room Air 03/19/23 16:19 03/19/23 16:20 03/19/23 16:21 Temperature Pulse Rate 92 H 96 H Respiratory Rate Blood Pressure Pulse Oximetry 92 L 92 L 92 L Oxygen Delivery Method 03/19/23 16:22 03/19/23 16:25 03/19/23 16:30 Temperature Pulse Rate 90 93 H 88 Respiratory Rate 14 16 14 Blood Pressure 96/46 L 91/52 L 90/48 L Pulse Oximetry 93 L 93 L 93 L Oxygen Delivery Method 03/19/23 16:35 03/19/23 16:40 03/19/23 16:47 Temperature Pulse Rate 97 H 88 80 Respiratory Rate 14 Blood Pressure 93/52 L 96/56 L 101/56 L Pulse Oximetry 93 L 93 L 94 L Oxygen Delivery Method Room Air 03/19/23 19:15 03/19/23 21:52 03/20/23 00:52 Temperature 98.0 F 98.0 F 98.1 F Pulse Rate Respiratory Rate 16 Blood Pressure Pulse Oximetry Oxygen Delivery Method 03/20/23 03:25 Temperature 98.2 F Pulse Rate Respiratory Rate Blood Pressure Pulse Oximetry Oxygen Delivery Method Psych Mood and affect: depressed mood Results Labs Labs: Short CBC 03/20/23 Range/Units 05:10 WBC 20.8 H (4.0-11.0) 10^3/uL Hgb 9.4 L (12.0-16.0) g/dL Hct 28.1 L (36.0-48.0) % Plt Count 200 (150-450) 10^3/uL OB - PN: A/P Assessment and Plan (1) Chorioamnionitis: (2) Premature rupture of membranes in second trimester: (3) demise before 20 weeks with retention of fetus: Assessment and Plan: Recovering well. Requires emotional support. White blood cell count this morning was twenty thousand. We'll continue with IV antibiotics until tomorrow. Time Spent with Patient Time: Total time spent is greater than 50% in coordination of care (as documented) at patient's floor/unit and/or counseling patient: Total time spent with greater than 50% in coordination of care (as documented) at patient's floor/unit and/or counseling patient: less than 15 minutes
--- NOTE | 2023-03-20 19:06 | W.PC.ACHO ---
Registration Status: ADM IN Primary Language: Preferred Language: Arabic Active Medications Generic Name Dose Route Start Last Admin Trade Name Nicolás PRN Reason Stop Dose Admin Carboprost Tromethamine 250 mcg 03/19/23 08:02 Carboprost Tromethamine 250 Mcg/Ml 1 Ml Vial IM Q15M PRN Bleeding Hydromorphone HCl 0.5 mg 03/19/23 16:32 Hydromorphone Hcl 0.5 Mg/0.5 Ml Syringe IV Q5M PRN Pain Sodium Chloride 1,000 mls @ 125 mls/hr 03/19/23 05:30 03/20/23 13:36 Sodium Chloride 0.9% 1,000 Ml IV 125 mls/hr .Q8H TYLOR Administration Oxytocin 10 unit/ Sodium 501 mls @ 6.012 mls/hr 03/19/23 08:15 Chloride IV Q24H TYLOR 2 MILLIUNIT/MIN Promethazine HCl 25 mg/ Sodium 51 mls @ 204 mls/hr 03/19/23 10:53 03/19/23 11:52 Chloride IV 204 mls/hr Q3H PRN 204 mls/hr Pain Administration Metronidazole 500 mg in 100 mls @ 100 mls/hr 03/19/23 13:00 03/20/23 13:37 Flagyl 500 Mg/100 Ml Premix IV 100 mls/hr Q12H TYLOR 100 mls/hr Administration Cefazolin Sodium/Dextrose 2 gm in 50 mls @ 100 mls/hr 03/19/23 13:15 03/20/23 13:46 Ancef IV 100 mls/hr Q6H TYLOR 100 mls/hr Administration Ketorolac Tromethamine 30 mg 03/19/23 12:50 03/20/23 00:50 Ketorolac Tromethamine 30 Mg/Ml Vial IVP 30 mg Q6H PRN Administration Pain Lidocaine 5 ml 03/19/23 08:02 Lidocaine Viscous 2% 15 Ml Topical Solution TOPICAL ONCE PRN Pain Lidocaine 1 ml 03/19/23 08:02 Lidocaine Hcl 1% 200 Mg/20 Ml Mdv INJ ONCE PRN Pain Meperidine HCl 25 mg 03/19/23 10:53 03/19/23 12:10 Meperidine Hcl/Pf 25 Mg/Ml Vial IVP 25 mg Q3H PRN Administration Pain Meperidine HCl 25 mg 03/19/23 16:32 Meperidine Hcl/Pf 25 Mg/Ml Vial IVP ONCE PRN Pain Methylergonovine Maleate 0.2 mg 03/19/23 08:02 Methylergonovine Maleate 0.2 Mg/Ml Ampule IM ONCE PRN Uterine Contractility/Contract Methylergonovine Maleate 0.2 mg 03/19/23 08:02 Methylergonovine Maleate 0.2 Mg Tablet PO Q4H PRN Uterine Contractility/Contract Misoprostol 600 mcg 03/19/23 08:02 Misoprostol 100 Mcg Tablet PO ONCE PRN Uterine Bleeding Misoprostol 800 mcg 03/19/23 08:02 Misoprostol 100 Mcg Tablet SL ONCE PRN Uterine Bleeding Misoprostol 1,000 mcg 03/19/23 08:02 Misoprostol 100 Mcg Tablet [place] ONCE PRN Uterine Bleeding Misoprostol 400 mcg 03/19/23 13:00 03/19/23 13:15 Misoprostol 100 Mcg Tablet VAGINAL 400 mcg Q3H TYLOR Administration Morphine Sulfate 2 mg 03/19/23 16:32 Morphine Sulfate 4 Mg/Ml Vial IV ONCE PRN Pain Oxytocin 10 unit 03/19/23 08:02 Oxytocin 100 Unit/10 Ml Vial IM ONCE PRN Uterine Bleeding Consults Category Date Time Status Consult to Scale Reclamation Tender Routine Cons 03/20/23 Ordered Neurology [place] coma scale total score 15 Respiratory Lung sounds [Throughout] clear Cardiology Heart Sounds Regular Bowels Date of Last Bowel Movement [ 03/20/23 All Quadrants]
--- NOTE | 2023-03-20 20:34 | PC.NURSE ---
Patient sitting in bed. Pictures of baby and parents brought into room per parents request. Parents have baby in crib on cuddle cot at bedside at this time. Mom is tearful at times but seams to be coping appropriately.
[2023-03-21] MEDS: METRONIDAZOLE/SODIUM CHLORIDE 500 MG/100 ML PREMIX 100 MG IV (01:05)
[2023-03-21] MEDS: CEFAZOLIN SODIUM/DEXTROSE,ISO 2 GM/50 ML PIGGYBACK IV ×2 (02:02→08:57)
[2023-03-21 02:42] VITALS: BP 117/65; PULSE 69
--- NOTE | 2023-03-21 03:11 | PC.NURSE ---
Patient called this RN into room. Patient states she is having some blurred vision and spotty vision. Vitals taken and WNL. Assessment normal with minimal bleeding. Will discuss with Dr. Gates.
--- NOTE | 2023-03-21 03:25 | PC.NURSE ---
Reported blurred and spotty vision to Dr. Gates along with normal assessment and vitals. Physician agrees it is probably lack of sleep over last 24 hours. Will give reassurance to patient and continue to monitor.
[2023-03-21 06:11] LABS: Basophils Absolute Auto 0.1 10^3/uL (0.0-0.1); Basophils Percent Auto 0.5 % (0.2-2.0); Eosinophils Absolute Auto 0.4 10^3/uL (0.0-0.7); Eosinophils Percent Auto 2.6 % (0.9-7.0); Hematocrit 30.6 % (36.0-48.0); Immature Granulocytes Abs Auto 0.18 10^3/uL (0.00-0.03); Immature Granulocytes Pct Auto 1.3 % (0.0-0.5); Lymphocytes Absolute Auto 4.1 10^3/uL (1.2-3.8); Lymphocytes Percent Auto 30.5 % (20.5-60.0); Mean Corpuscular HGB Conc 32.7 g/dL (29.9-35.2); Mean Corpuscular Hemoglobin 29.9 pg (26.7-34.0); Mean Corpuscular Volume 91.6 fL (81.0-99.0); Mean Platelet Volume 10.4 fL (9.5-13.5); Monocytes Absolute Auto 0.7 10^3/uL (0.3-0.8); Monocytes Percent Auto 5.4 % (1.7-12.0); Neutrophils Percent Auto 59.7 % (43.0-75.0); Nucleated Red Blood Cells 0; Platelet Count 194 10^3/uL (150-450); Red Blood Count 3.34 10^6/uL (4.20-5.40); Red Cell Distribution Width 13.5 % (11.0-15.0); White Blood Count 13.4 10^3/uL (4.0-11.0)
--- NOTE | 2023-03-21 07:29 | W.PC.ACHO ---
Registration Status: ADM IN Primary Language: Preferred Language: Lithuanian Report given and Care relinqueshed to Yesi CANNON. Active Medications Generic Name Dose Route Start Last Admin Trade Name Nicolás PRN Reason Stop Dose Admin Carboprost Tromethamine 250 mcg 03/19/23 08:02 Carboprost Tromethamine 250 Mcg/Ml 1 Ml Vial IM Q15M PRN Bleeding Hydromorphone HCl 0.5 mg 03/19/23 16:32 Hydromorphone Hcl 0.5 Mg/0.5 Ml Syringe IV Q5M PRN Pain Sodium Chloride 1,000 mls @ 125 mls/hr 03/19/23 05:30 03/20/23 13:36 Sodium Chloride 0.9% 1,000 Ml IV 125 mls/hr .Q8H TYLOR Administration Oxytocin 10 unit/ Sodium 501 mls @ 6.012 mls/hr 03/19/23 08:15 Chloride IV Q24H TYLOR 2 MILLIUNIT/MIN Promethazine HCl 25 mg/ Sodium 51 mls @ 204 mls/hr 03/19/23 10:53 03/19/23 11:52 Chloride IV 204 mls/hr Q3H PRN 204 mls/hr Pain Administration Metronidazole 500 mg in 100 mls @ 100 mls/hr 03/19/23 13:00 03/21/23 01:05 Flagyl 500 Mg/100 Ml Premix IV 100 mls/hr Q12H TYLOR 100 mls/hr Administration Cefazolin Sodium/Dextrose 2 gm in 50 mls @ 100 mls/hr 03/19/23 13:15 03/21/23 02:02 Ancef IV 100 mls/hr Q6H TYLOR 100 mls/hr Administration Ketorolac Tromethamine 30 mg 03/19/23 12:50 03/20/23 00:50 Ketorolac Tromethamine 30 Mg/Ml Vial IVP 30 mg Q6H PRN Administration Pain Lidocaine 5 ml 03/19/23 08:02 Lidocaine Viscous 2% 15 Ml Topical Solution TOPICAL ONCE PRN Pain Lidocaine 1 ml 03/19/23 08:02 Lidocaine Hcl 1% 200 Mg/20 Ml Mdv INJ ONCE PRN Pain Meperidine HCl 25 mg 03/19/23 10:53 03/19/23 12:10 Meperidine Hcl/Pf 25 Mg/Ml Vial IVP 25 mg Q3H PRN Administration Pain Meperidine HCl 25 mg 03/19/23 16:32 Meperidine Hcl/Pf 25 Mg/Ml Vial IVP ONCE PRN Pain Methylergonovine Maleate 0.2 mg 03/19/23 08:02 Methylergonovine Maleate 0.2 Mg/Ml Ampule IM ONCE PRN Uterine Contractility/Contract Methylergonovine Maleate 0.2 mg 03/19/23 08:02 Methylergonovine Maleate 0.2 Mg Tablet PO Q4H PRN Uterine Contractility/Contract Misoprostol 600 mcg 03/19/23 08:02 Misoprostol 100 Mcg Tablet PO ONCE PRN Uterine Bleeding Misoprostol 800 mcg 03/19/23 08:02 Misoprostol 100 Mcg Tablet SL ONCE PRN Uterine Bleeding Misoprostol 1,000 mcg 03/19/23 08:02 Misoprostol 100 Mcg Tablet [place] ONCE PRN Uterine Bleeding Misoprostol 400 mcg 03/19/23 13:00 03/19/23 13:15 Misoprostol 100 Mcg Tablet VAGINAL 400 mcg Q3H TYLOR Administration Morphine Sulfate 2 mg 03/19/23 16:32 Morphine Sulfate 4 Mg/Ml Vial IV ONCE PRN Pain Oxytocin 10 unit 03/19/23 08:02 Oxytocin 100 Unit/10 Ml Vial IM ONCE PRN Uterine Bleeding Neurology [place] coma scale total score 15 Respiratory Lung sounds [Throughout] clear Oxygen Delivery Method Room Air Bowels Date of Last Bowel Movement [ 03/20/23 All Quadrants] Renal Bladder Pattern Continent
[2023-03-21 08:15] VITALS: RESP 18
[2023-03-21 08:55] VITALS: BP 111/57; PULSE 64
[2023-03-21 12:15] VITALS: RESP 28; TEMP 36.7
[2023-03-21 13:00] VITALS: RESP 18; TEMP 36.6
--- NOTE | 2023-04-09 14:53 | P.DS_ITS ---
DS: Providers Provider Date of admission: 03/19/23 04:42 Primary care physician: GIANLUCA BRISCOE Consults: 03/20/23 Consult to Group Home Manager Routine DS: Diagnosis Discharge Diagnosis (1) Chorioamnionitis: (2) Premature rupture of membranes in second trimester: (3) demise before 20 weeks with retention of fetus: OB - DS: Summary Hospital Course Hospital Course: 27-year-old two, para zero, presented to the birthing unit initially with complaints of ruptured membranes. She had a history of emergency cerclage placed at nineteen weeks, subsequently developed chorioamnionitis, stillborn fetus was delivered. Patient was taken to surgery for brief postoperative removal of the placenta and uterine curettage under ultrasound control without complications. Subsequently she underwent IV antibiotics treatments received counseling and was discharged home in stable condition. Condition on discharge satisfactory. Follow-up in the office in one week. Peripartum Data - Procedures: Procedures Operation Date: 03/19/23 15:25 Actual Procedure Side Surgeon p D&C with Suction Not Applicable Alejandro Gates MD Peripartum Data - Vaginal Delivery Procedures: Procedures Operation Date: 03/19/23 15:25 Actual Procedure Side Surgeon p D&C with Suction Not Applicable Alejandro Gates MD Infant Delivery method: spontaneous vaginal delivery Gender: female Discharge plan: Demise Time Spent with Patient Time attestation: Total time spent providing and/or coordinating discharge services: Time spent: less than 30 minutes Exam Narrative Exam Narrative: General exam was normal. Abdomen is soft, nontender, uterus is firm, nontender. Vaginal discharge. Minimal, bloody. Neurologic exam is grossly normal. Patient is grieving the loss. Discharge Plan Discharge Disposition: Home, Self-Care Condition: Good Assessment: 27 year old primip with demise at 20 weeks due to chorioamnionitis and funneling of membranes. Other institution place a cerclage after funneling identified by [facility]. Patient sought second opinion and decision was made to place cerclage. subsequent to this the patient developed chorioamnionitis a/w demise and was delivered at [facility]. She has received more than 24 hours of antibiotics. Her temp and vital signs are normal. Her WBC has dropped from 20 to 13 without left shift at this point. Her mood is appropriate for loss of . She and FOB in good relationship. They are presently living with cousin as moved to [place] from [place] however they do plan to move back to [place] in future. They are currently residing in [place]. Her clinical exam is nonfocal. She is sad but without suicidal ideation. She receives her care at [facility] from Maura the nurse graphic art sales representative. 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 This will need to be addressed by health care provider before next Plan of Treatment: will not send home on antibiotic has ibuprofen at home which she can take for cramps counselled on the appropriate sadness which she is experiencing after loss of , however if her sadness excellates over next few days she needs to contact maternity. there is no suicidal ideation or thoughts presently. considerable time was spent in teaching and encouragement that the loss was not her fault and does not mean she can not have a term . She was instructed to not have sexual intercourse until she has follow up with Maura her nurse graphic art sales representative as her uterus needs to heal and a management plan instituted for next given her history. all questions were answered by patient and the FOB with stated understanding. She did state she feels ready to go home. Discharge Medications: No Action No Known Home Medications Activity: resume usual activities as tolerated Diet: regular diet Print Language: Israeli Patient Instructions: Pelvic Rest (ED) Forms: Portal Instructions Referrals: GIANLUCA BRISCOE [Primary Care Provider] - 1 week Follow Up Appointments: to call office Friday to make follow up appointment with Maura the nurse graphic art sales representative Discharge Date/Time: 03/21/23 15:00 Discharge location: home
== END 2023-03-21 15:00 | disposition home or self-care (01) | DRG 543 ==
LOC: ER 04:10 → FBC 04:44
PROVIDERS: Admitting Provider Obstetrics & Gynecology; Emergency Provider Emergency Medicine; PCP Nurse Practitioner; Visit Provider Obstetrics & Gynecology
PROC: 10D17ZZ Extraction of Products of Conception, Retained, Via Natural or Artificial Opening (ICD-10-PCS; principal; 2023-03-19 15:25)
DX: O02.1 Missed abortion (principal); Z87.891 Personal history of nicotine dependence; Z83.49 Family history of other endocrine, nutritional and metabolic diseases; F43.21 Adjustment disorder with depressed mood; Z98.890 Other specified postprocedural states; Z87.42 Personal history of other diseases of the female genital tract
CPT/HCPCS: 36415; 59410; 59412; 59899; 76815; 76856; 80053; 85025; 85027; 86900; 86901; 88305; 96374; 96375; 96376; 99282; 99285; J2704

== ENCOUNTER 2023-05-28 12:50 | Emergency (ER) | payer MEDICAID, SELFPAY ==
[2023-05-28 12:53] VITALS: BP 125/77; PULSE 92; RESP 18; TEMP 37.5; O2SAT 97; BMI 36.3
--- NOTE | 2023-05-28 13:01 | XR_ITS ---
[address] [address] Patient Name: GIRMA ESQUIVEL MRN: [id number] date: 1995 Sex: F Assigned Patient Location: ER Current Patient Location: ED.MAIN Accession/Order Number: [id number] Exam Date: 05/28/2023 13:23 Report Date: 05/28/2023 14:10 At the request of: NAYANA ESQUIVEL Procedure: XR knee RT 4V EXAM: XR knee RT 4V HISTORY: pain COMPARISON: None. TECHNIQUE: 3 views of the right knee FINDINGS: There is no acute fracture or dislocation. No aggressive bone lesion. No joint effusion. XR/XR knee RT 4V IMPRESSION: No acute process. Electronically authenticated by: KENDRA VALADEZ Date: 05/28/2023 14:10
--- NOTE | 2023-05-28 13:21 | ED_ITS ---
HPI - Extremity Injury (Lower) General Chief Complaint: Extremity Injury, Lower Stated Complaint: R LEG/KNEE SWOLLEN/PAIN Time Seen by Provider: 05/28/23 13:21 Source: patient Mode of arrival: walk-in Limitations: no limitations History of Present Illness HPI Narrative: Patient presents to emergency department complaining of right knee pain. Patient states She's been having pain to the right knee for a while. Several months. Patient takes [id number] medications. Patient is here with her significant other for other issues. She decided to get checked out too. She denies any previous injury. She denies any fever, chills. She denies any weakness. Pain is worse when she walks. She denies any lower extremity edema, or cramping. Related Data Previous Rx's Medication Instructions Recorded ibuprofen 800 mg tablet 800 mg PO Q8H PRN pain #20 tabs 05/28/23 Allergies Allergy/AdvReac Type Severity Reaction Status Date / Time latex Allergy Unknown Verified 05/28/23 12:58 Review of Systems ROS Status of ROS 10 or more systems reviewed and unremarkable except as noted in history and below [facility] Medical History Social History Smoking status: Current every day smoker Gender Identity: female Exam Narrative Exam Narrative: Vital signs reviewed and nurse's notes. The patient is not hypoxic. General: Alert, no acute distress, patient resting comfortably Skin: warm, intact, no pallor noted Head: Normocephalic, atraumatic Eye: Normal conjunctiva Respiratory: No acute distress Musculoskeletal: No evidence of deformity to the R knee. There is amount of swelling. There is no ecchymosis. No erythema or warmth noted. DP and PT pulses are intact 2+. Normal sensation, normal capillary refill less than 2 seconds. There is no cyanosis or mottling noted. The patient has tenderness to of the right knee. The patient has no laxity with varus or valgus stressing. The patient has negative anterior drawer and Dorie testing. The patient was able to flex and extend although with pain. Patient was able to extend leg off the cart without difficulty. No tenderness noted to the 5th MT, midfoot, ankle or proximal fibular area. There is no pain with calcaneal squeeze, achilles tendon is intact and no defect is palpated. The patient has no pelvic instability. The patient has no shortening or rotation noted to the bilateral lower extremities. Neurological: alert and orient x4, normal sensory and motor observed. Psychiatric: Cooperative Constitutional Vital Signs, click to edit/add: Last Vital Signs Temp 99.5 F 05/28/23 12:53 Pulse 92 H 05/28/23 12:53 Resp 18 05/28/23 12:53 BP 125/77 05/28/23 12:53 Pulse Ox 97 05/28/23 12:53 O2 Del Method Room Air 05/28/23 12:53 Course Vital Signs Vital signs: Vital Signs Temperature 99.5 F 05/28/23 12:53 Pulse Rate 92 H 05/28/23 12:53 Respiratory Rate 18 05/28/23 12:53 Blood Pressure 125/77 05/28/23 12:53 Pulse Oximetry 97 05/28/23 12:53 Oxygen Delivery Method Room Air 05/28/23 12:53 Temperature 99.5 F 05/28/23 12:53 Pulse Rate 92 H 05/28/23 12:53 Respiratory Rate 18 05/28/23 12:53 Blood Pressure 125/77 05/28/23 12:53 Pulse Oximetry 97 05/28/23 12:53 Oxygen Delivery Method Room Air 05/28/23 12:53 MDM - Extremity Injury (Lower) MDM Narrative Medical decision making narrative: Right knee x-rays done and is unremarkable. Michael wrap was applied, patient was given a prescription for Motrin. Advised follow-up with primary care doctor and orthopedic. No additional indication for emergent studies at this time. I answered all questions. Discussed discharge instructions including standard anticipatory guidance and what should prompt a return to the emergency department, including if they get worse are not getting better or develops any new or concerning symptoms. I've given them specific time frame in which to follow-up, and who to follow-up with. The patient demonstrates understanding. Patient is nontoxic and stable for discharge with outpatient follow-up. This note was created with the assistance of a speech recognition program. Although the intention is to generate documents that actually reflects the content of the visit, no guarantees can be provided that every mistake has been identified and corrected by editing. Discharge Plan Discharge Chief Complaint: Extremity Injury, Lower Clinical Impression: Knee pain Patient Disposition: Home, Self-Care Time of Disposition Decision: 13:53 Condition: Good Mode of Transportation: Private Vehicle Prescriptions / Home Meds: New ibuprofen 800 mg tablet 800 mg PO Q8H PRN (Reason: pain) Qty: 20 0RF Instructions: Knee Pain (ED) Stand Alone Forms: Portal Instructions Referrals: MONSE HERNANDEZ APRN [Physician] - 1 week GIANLUCA BRISCOE [Primary Care Provider] - 1 week Discharge Date/Time: 05/28/23 14:14
== END 2023-05-28 14:14 | disposition home or self-care (01) ==
PROVIDERS: Emergency Provider Emergency Medicine; PCP Nurse Practitioner
DX: M25.561 Pain in right knee (principal); F17.210 Nicotine dependence, cigarettes, uncomplicated
CPT/HCPCS: 73564; 84703; 99283